=== PATIENT | female | born 1965 | race Caucasian/White ===

== ENCOUNTER 2022-10-11 14:38 | Inpatient (IN) | payer OTHER ==
[~2022-10-11] VITALS: Ht 162.6 cm; Wt 140.6 kg
[2022-10-11 14:49] VITALS: BP 124/79; PULSE 89; RESP 18; TEMP 98; O2SAT 99
--- NOTE | 2022-10-11 14:50 | NUR ---
PATIENT AMBULATED TO ER BED 04
[2022-10-11 16:04] LABS: BASOPHILS % (AUTO) 0.6 % (0.0-2.0); EOSINOPHILS # (AUTO) 0.2 K/uL (0-0.4); EOSINOPHILS % (AUTO) 2.1 % (0.0-4.0); HEMATOCRIT 38.3 % (36-48); HEMOGLOBIN 12.8 g/dL (12.0-16.0); LYMPHOCYTES # (AUTO) 2.4 K/uL (2.5-16.5); LYMPHOCYTES % (AUTO) 33.1 % (20.5-51.1); MEAN CORPUSCULAR HEMOGLOBIN 28 pg (27-31); MEAN CORPUSCULAR HGB CONC 33 g/dL (33-37); MEAN CORPUSCULAR VOLUME 82.9 fL (80-94); MONOCYTES # (AUTO) 0.7 K/uL (0.8-1.0); MONOCYTES % (AUTO) 9.5 % (1.7-9.3); NEUTROPHILS % (AUTO) 54.7 % (42.2-75.2); PLATELET COUNT (AUTO) 193 K/uL (140-450); RED BLOOD CELL COUNT(AUTO) 4.62 MIL/uL (4.20-5.40); RED CELL DISTRIBUTION WIDTH 15.1 % (11.6-13.7); WHITE BLOOD COUNT (AUTO) 7.3 K/uL (4.8-10.8)
[2022-10-11 16:15] VITALS: O2SAT 96
--- NOTE | 2022-10-11 16:20 | NUR ---
57 Y/O FEMALE, PT PRESENTS TO ED WITH C/O INTERMITTENT CP FOR 1.5 HOURS PRIOR TO ARRIVAL. PT STATES SHE HAS ALSO BEEN HAVING SOB WITH EXERTION AND LEFT EAR PRESSURE. 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 PATIENT POSITIONED FOR COMFORT; HOB ELEVATED; BEDRAILS UP X2; BED DOWN. ER MD MADE AWARE OF PT STATUS. CALL LIGHT WITHIN REACH. PMH: HTN, CHF, AFIB, DM2, STAGE 4 KIDNEY DISEASE, BELLS PALSY NKA
--- NOTE | 2022-10-11 16:24 | NUR ---
PATIENT PRESENTS TO ED WITH SIGNS OF CHEST PAIN. INTERMITTENT LFT SIDED NON RADIATINING CRAMPING, CHEST PAIN DURRATION OF A FEW SECONDS, PT HAS SOB WITH EXERTION.PT STATES SHES BEEN HAVING CHEST PAIN FOR 1.5 HOURS. DENIES N/V/D; SKIN IS PINK/WARM/DRY; AAOX4 WITH EVEN AND STEADY GAIT; LUNGS CLEAR BL; HR EVEN AND REGULAR; PT DENIES ANY FEVER, SOB, OR COUGH AT THIS TIME; PATIENT STATES PAIN OF 9/10 AT THIS TIME; VSS; PATIENT POSITIONED FOR COMFORT; HOB ELEVATED; BEDRAILS UP X2; BED DOWN.CALL LIGHT WITH IN REACH. ER MD MADE AWARE OF PT STATUS. PMHX CHF HTN DM AFIB ENSTAGE KIDNEY DISEASE BELLS PALSY ALLERGIES
[2022-10-11 16:25] LABS: ALBUMIN 3.6 g/dL (3.4-5.0); ANION GAP 13.9 (8-16); ASPARTATE AMINOTRANSFERASE 27 U/L (15-37); CARBON DIOXIDE 28.7 mmol/L (21-32); CHLORIDE 103 mmol/L (98-107); CREATININE 2.3 mg/dL (0.6-1.3); GFR ARICAN-AMERICAN 28 mL/min (>90); GLUCOSE 79 mg/dL (74-106); POTASSIUM 3.6 mmol/L (3.5-5.1); SODIUM SERUM 142 mmol/L (136-145); TOTAL BILIRUBIN 0.6 mg/dL (0.0-1.0); UREA NITROGEN, BLOOD 49 mg/dL (7-18)
[2022-10-11] MEDS ORDERED: ACETAMINOPHEN EXTRA STRENGTH 500 MG TAB PO ONE (16:50)
[2022-10-11] MEDS ORDERED: FUROSEMIDE 40 MG/4 ML VIAL IVP ONE (16:50)
--- NOTE | 2022-10-11 17:04 | NUR ---
PT HAS BEEN PLACED ON THE MONITOR. PT HAS BEEEN MEDICATED PER PROVIDERS ORDERS. PT HAS BEEN OFFERED JUICE. PTS BLOOD PRESSURE READING AT 129/66.
[2022-10-11] MEDS ORDERED: ASPIRIN 325 MG TAB PO ONE (17:55)
[2022-10-11] MEDS ORDERED: ASPIRIN 325 MG TAB ONE (19:12)
[2022-10-11] MEDS ORDERED: MORPHINE SULFATE 2 MG/ML SYR IVP PRN (21:30)
[2022-10-11] MEDS ORDERED: ONDANSETRON 4 MG/2 ML VIAL IVP PRN (21:30)
[2022-10-11] MEDS ORDERED: FURO-570 PO (22:17)
[2022-10-11] MEDS ORDERED: CARV25TA PO (22:17)
[2022-10-11] MEDS ORDERED: PANT40EC PO (22:17)
[2022-10-11] MEDS ORDERED: HYDR-5080 PO (22:17)
[2022-10-11] MEDS ORDERED: POTA10TA70 PO (22:17)
[2022-10-11] MEDS ORDERED: LOSA100T2 PO (22:17)
[2022-10-11] MEDS ORDERED: TRAZ-343 PO (22:17)
[2022-10-11] MEDS ORDERED: ATOR40TA PO (22:17)
[2022-10-11] MEDS ORDERED: CHOL500040 PO (22:17)
[2022-10-11] MEDS ORDERED: APIX5TAB PO (22:17)
[2022-10-11] MEDS ORDERED: ZAR2.5 PO (22:17)
--- NOTE | 2022-10-11 22:25 | NUR ---
Patient will be admitted to care of [facility]. Admited to TELE. Will go to room 122B. Belongings list completed. Report to LUI Olmstead.
[2022-10-11 22:45] VITALS: BP 118/70; PULSE 72; PULSE 80; RESP 16; TEMP 97.2; O2SAT 98
--- NOTE | 2022-10-11 22:45 | NUR ---
RECEIVED PT ADMISSION FROM ER, ARRIVED TO THE UNIT VIA [facility]. PT IS WITH A CHIEF COMPLAINT OF CHEST PAIN, DIAGNOSIS CHF. PT IS AWAKE, ALERT AND VERBALLY RESPONSIVE. PT HAS NO KNOWN ALLERGY AND IS A FULL CODE. PT HAS CARDIAC DIET. SHE IS ABLE TO AMBULATE FROM [facility] TO THE ASSIGNED BED WITH STEADY GAIT. PT IS CONTINENT. IV SITE IS ON RIGHT FOREARM 22G AND IS SALINE LOCK. SKIN INTACT AND WARM. PT IS COMING FROM HOME AND UNDER THE CARE OF DR. OWEN. PT DENIES OF PAIN AT THIS TIME.
--- NOTE | 2022-10-11 22:56 | NUR ---
Pt transferred to rm 122B in stable condition.
[2022-10-12] VITALS (10 sets, daily range): BP systolic 96–141; BP diastolic 52–73; PULSE 61–84; RESP 16–20; TEMP 96.9–97.9; O2SAT 97–99
[2022-10-12] MEDS: LORazepam 2 MG/ML VIAL IVP PRN (01:54)
--- NOTE | 2022-10-12 01:54 | NUR ---
PT COMPLAINTS OF ANXIETY AND UNABLE TO SLEEP, ATIVAN ADMINISTERED ORDERED.
--- NOTE | 2022-10-12 02:53 | NUR ---
PT IS SLEEPING, NO SOB OR DISTRESS.
[2022-10-12 05:13] LABS: BASOPHILS % (AUTO) 0.5 % (0.0-2.0); EOSINOPHILS # (AUTO) 0.2 K/uL (0-0.4); EOSINOPHILS % (AUTO) 2.7 % (0.0-4.0); HEMATOCRIT 38.2 % (36-48); HEMOGLOBIN 12.5 g/dL (12.0-16.0); LYMPHOCYTES # (AUTO) 2.8 K/uL (2.5-16.5); LYMPHOCYTES % (AUTO) 41.4 % (20.5-51.1); MEAN CORPUSCULAR HEMOGLOBIN 28 pg (27-31); MEAN CORPUSCULAR HGB CONC 33 g/dL (33-37); MONOCYTES # (AUTO) 0.7 K/uL (0.8-1.0); MONOCYTES % (AUTO) 10.6 % (1.7-9.3); NEUTROPHILS % (AUTO) 44.8 % (42.2-75.2); PLATELET COUNT (AUTO) 202 K/uL (140-450); RED BLOOD CELL COUNT(AUTO) 4.55 MIL/uL (4.20-5.40); RED CELL DISTRIBUTION WIDTH 15.1 % (11.6-13.7); WHITE BLOOD COUNT (AUTO) 6.7 K/uL (4.8-10.8)
[2022-10-12 05:27] LABS: ALBUMIN 3.2 g/dL (3.4-5.0); ANION GAP 12.1 (8-16); CARBON DIOXIDE 30.4 mmol/L (21-32); CREATININE 2.2 mg/dL (0.6-1.3); MAGNESIUM 1.9 mg/dL (1.8-2.4); POTASSIUM 3.5 mmol/L (3.5-5.1); TOTAL BILIRUBIN 0.5 mg/dL (0.0-1.0)
[2022-10-12] MEDS ORDERED: DEXTROSE 50% 50 ML SYR IVP PRN (06:50)
[2022-10-12] MEDS: BLOOD GLUCOSE MONITORING 1 DEV DEV FS SCH ×4 (06:53→20:04)
--- NOTE | 2022-10-12 06:53 | NUR ---
BLOOD SUGAR CHECKED = 103, NO SLIDING SCALE COVERAGE.
--- NOTE | 2022-10-12 07:22 | NUR ---
PT IS ON STABLE CONDITION. SAFETY MEASURES ARE IN PLACE. ENDORSED TO DAY SHIFT NURSE.
--- NOTE | 2022-10-12 07:45 | NUR ---
RECEIVED REPORT FROM KILN FIREMAN NURSE FOR CONTINUITY OF CARE. PT IS AWAKE, ALERT AND ORIENTED X4, AMBULATORY AND CONTINENT. CURRENTLY ON ROOM AIR WITH NO APPARENT SIGNS OF ACUTE DISTRESS NOTED. PATIENT STATES NO PAIN AT THIS TIME. IV SITE LOCATED AT RIGHT FOREARM 22 GAUGE, SALINE LOCK. OVERALL SKIN IS INTACT, NO OPEN WOUNDS. POC DISCUSSED, CALL LIGHT PLACED WITHIN REACH, SAFETY MEASURES IN PLACE. WILL MAKE FREQUENT ROUNDS.
--- NOTE | 2022-10-12 08:46 | NUR ---
PATIENT HAS BEEN SCREENED AND CATEGORIZED MODERATE NUTRITION RISK. PATIENT WILL BE SEEN WITHIN 3-5 DAYS OF ADMISSION. 10/14/22-10/16/[address]
[2022-10-12] MEDS: FUROSEMIDE 40 MG/4 ML VIAL IVP SCH ×2 (09:25→20:05)
[2022-10-12] MEDS: INSULIN LISPRO SLIDING SCALE 100 UNITS/ML VIAL SUBQ PRN ×2 (11:04→20:11)
--- NOTE | 2022-10-12 11:30 | NUR ---
PATIENT BLOOD GLUCOSE LEVEL OF OF 299. 6 UNITS OF HUMALOG WAS ADMINISTERED, PT TOLERATED WELL.
--- NOTE | 2022-10-12 13:44 | NUR ---
PT SPOKE WITH DIETARY ON DIETARY NEEDS.
--- NOTE | 2022-10-12 13:47 | NUR ---
DR HERNANDEZ CLEARED TO CONTINUE PATIENTS HOME MEDICATIONS. PT MADE AWARE.
--- NOTE | 2022-10-12 13:58 | NUR ---
Lard Renderer This mental health social worker conducted this assessment. Pt. was agreeable to this interview. She was sitting upright eating her lunch. Answers were appropriate and pt. was engaged. Pt. was AOx4.Pt. denied having any identifying problems. Pt. stated daughterKerry is her IHSS. Pt. also stated she receives weekly follow up calls from her [facility] worker, Jennie. Pt. stated she can perform most of her ADLs', fees self, dresses, bathes. Her daughterKerry is her SS worker and provides some assistance. Pt. stated she can drive self to apts. Pt stated she is aware of her health issues and said she is stage 4 for kidney failure.
[2022-10-12] MEDS: HYDROcodone/APAP 7.5/325 MG 1 TAB PO PRN (15:28)
--- NOTE | 2022-10-12 15:51 | NUR ---
ADMINISTERED NORCO FOR A PAIN LEVEL OF 6/10. PATIENT TOLERATED WELL, WILL REASSESS PAIN LEVEL IN ONE HOUR.
--- NOTE | 2022-10-12 16:22 | NUR ---
PATIENT BLOOD SUGAR LEVEL OF 149. NO COVERAGE NEEDED. NO OTHER SIGNS/SYMPTOMS OF DISTRESS NOTED. WILL CONTINUE MONITORING THE PATIENT.
--- NOTE | 2022-10-12 19:20 | NUR ---
RECEIVED PT IN BED AWAKE, ALERT AND ORIENTED X 4. DENIES PAIN AT THIS TIME. NO ACUTE RESPIRATORY DISTRESS. SKIN WARM AND DRY TO TOUCH. SAFETY PRECAUTIONS IN PLACE, CALL LIGHT IN REACH, INSTRUCTED TO CALL IF ASSISTANCE IS NEEDED, PT VERBALLY ACKNOWLEDGED.
[2022-10-12] MEDS: carvediloL 12.5 MG TAB PO SCH (20:05)
[2022-10-12] MEDS: traZODone 50 MG TAB PO SCH (20:06)
[2022-10-12] MEDS: APIXABAN 2.5 MG TAB PO SCH (20:10)
--- NOTE | 2022-10-12 20:10 | NUR ---
SCHEDULED MEDICATIONS GIVEN ORDERED. PT TOLERATED WELL.
--- NOTE | 2022-10-12 21:00 | NUR ---
PROVIDED HS SNACKS. ATE 100%.
[2022-10-12] MEDS: ACETAMINOPHEN 325 MG TAB PO PRN (21:40)
[2022-10-13] VITALS: BP_SYST 113; BP_SYST 115; BP_DIAS 69; BP_DIAS 72; PULSE 63; PULSE 66; PULSE 75; RESP 18; TEMP 96.7; TEMP 97.2; O2SAT 98
--- NOTE | 2022-10-13 | NUR ---
VITAL SIGNS TAKEN AND DOCUMENTED, VS WITHIN NORMAL LIMITS. DENIES PAIN AT THIS TIME. CALL LIGHT WITHIN REACH.
[2022-10-13] MEDS: LORazepam 2 MG/ML VIAL IVP PRN (00:53)
--- NOTE | 2022-10-13 02:20 | NUR ---
ROUNDING DONE. PT IS ASLEEP. BREATHING EVEN AND UNLABORED. CALL LIGHT WITHIN REACH.
[2022-10-13 04:00] VITALS: BP 118/67; PULSE 61; RESP 18; TEMP 96.7; O2SAT 99
[2022-10-13] MEDS: BLOOD GLUCOSE MONITORING 1 DEV DEV FS SCH ×4 (06:37→20:22)
--- NOTE | 2022-10-13 07:00 | NUR ---
RECEIVED PT FROM CITY ASSESSOR FOR CONTINUITY OF CARE. ALERT AND ORIENTED X 4. RESP. EVEN AND UNLABORED. IV SITE INTACT, ON SALINE LOCK. AMBULATORY. SKIN INTACT. NO C/O PAIN OR DISCOMFORT. CALL LIGHT KEPT WITHIN REACH. WILL CONTINUE TO MONITOR.
[2022-10-13 08:00] VITALS: BP 130/87; PULSE 63; PULSE 69; RESP 20; TEMP 97.6; O2SAT 99
[2022-10-13] MEDS ORDERED: FUROSEMIDE 40 MG TAB PO SCH (09:00)
[2022-10-13] MEDS: HYDROcodone/APAP 7.5/325 MG 1 TAB PO PRN ×2 (09:33→21:46)
[2022-10-13] MEDS: APIXABAN 2.5 MG TAB PO SCH ×2 (09:36→20:13)
[2022-10-13] MEDS: PANTOPRAZOLE 40 MG TABEC PO SCH (09:37)
[2022-10-13] MEDS: carvediloL 12.5 MG TAB PO SCH ×2 (09:38→20:14)
[2022-10-13] MEDS: ATORVASTATIN 20 MG TAB PO SCH (09:38)
[2022-10-13] MEDS: POTASSIUM CHLORIDE 10 MEQ TABER PO SCH (09:38)
[2022-10-13] MEDS: LOSARTAN 50 MG TAB PO SCH (09:38)
--- NOTE | 2022-10-13 09:38 | NUR ---
SCHEDULED MEDICATIONS GIVEN. TOLERATED WELL.
[2022-10-13] MEDS: FUROSEMIDE 40 MG/4 ML VIAL IVP SCH ×2 (10:03→20:17)
--- NOTE | 2022-10-13 11:49 | NUR ---
BS CHECKED 240. INSULIN WAS GIVEN PER SLIDING SCALE.
[2022-10-13] MEDS: INSULIN LISPRO SLIDING SCALE 100 UNITS/ML VIAL SUBQ PRN ×2 (11:50→20:23)
[2022-10-13] MEDS: ACETAMINOPHEN 325 MG TAB PO PRN (11:55)
[2022-10-13] MEDS: traZODone 50 MG TAB PO SCH ×2 (11:56→20:12)
[2022-10-13 12:00] VITALS: BP 120/70; PULSE 71; RESP 20; TEMP 97; O2SAT 98
[2022-10-13 16:00] VITALS: BP 114/77; PULSE 62; PULSE 79; RESP 20; TEMP 97.5; O2SAT 98
[2022-10-13 16:47] LABS: BASOPHILS % (AUTO) 0.6 % (0.0-2.0); EOSINOPHILS # (AUTO) 0.2 K/uL (0-0.4); EOSINOPHILS % (AUTO) 2.8 % (0.0-4.0); HEMATOCRIT 38.3 % (36-48); HEMOGLOBIN 12.7 g/dL (12.0-16.0); LYMPHOCYTES # (AUTO) 2.3 K/uL (2.5-16.5); LYMPHOCYTES % (AUTO) 35.4 % (20.5-51.1); MEAN CORPUSCULAR HEMOGLOBIN 28 pg (27-31); MEAN CORPUSCULAR HGB CONC 33 g/dL (33-37); MEAN CORPUSCULAR VOLUME 83.1 fL (80-94); MONOCYTES # (AUTO) 0.6 K/uL (0.8-1.0); MONOCYTES % (AUTO) 9.3 % (1.7-9.3); NEUTROPHILS # (AUTO) 3.3 K/uL (1.8-7.7); NEUTROPHILS % (AUTO) 51.9 % (42.2-75.2); PLATELET COUNT (AUTO) 186 K/uL (140-450); RED BLOOD CELL COUNT(AUTO) 4.61 MIL/uL (4.20-5.40); RED CELL DISTRIBUTION WIDTH 15.2 % (11.6-13.7); WHITE BLOOD COUNT (AUTO) 6.4 K/uL (4.8-10.8)
--- NOTE | 2022-10-13 16:58 | NUR ---
BS CHECKED 130. NO COVERAGE NEEDED.
[2022-10-13 17:03] LABS: ANION GAP 10.1 (8-16); CARBON DIOXIDE 32.9 mmol/L (21-32); CREATININE 2.1 mg/dL (0.6-1.3)
--- NOTE | 2022-10-13 19:20 | NUR ---
REPORT GIVEN TO K 9 POLICE OFFICER FOR CONTINUITY OF CARE. REMAINS STABLE.
--- NOTE | 2022-10-13 19:21 | NUR ---
RECEIVED PT FROM MORNING SHIFT NURSE. PT IS AOX4, AMBULATORY, ABLE TO VERBALIZE NEEDS AND ABLE TO FOLLOW COMMANDS. PT IS ON ROOM AIR AND ON CARDIAC DIET. PT IV ON RIGHT HAND GAUGE 22, SALINE LOCK. PT SKIN IS INTACT. NO COMPLAIN OF PAIN AND NO S/S OF RESPIRATORY DISTRESS NOTED. ALL SAFETY MEASURES IMPLEMENTED, BED IN LOW POSITION, BED WHEELS ON LOCK AND CALL LIGHT WITHIN REACH.
[2022-10-13 20:00] VITALS: BP 113/72; PULSE 63; PULSE 65; RESP 18; TEMP 97.2; O2SAT 98
--- NOTE | 2022-10-13 20:23 | NUR ---
ALL SCHEDULED AND PRESCRIBED MEDICATION WAS GIVEN TO PT PER MD ORDER. PT BLOOD GLUCOSE IS 191. HUMALOG INSULIN 2 UNITS WAS GIVEN TO PT. ALL SAFETY MEASURES IMPLEMENTED, BED IN LOW POSITION, BED WHEELS ON LOCK AND CALL LIGHT WITHIN REACH.
--- NOTE | 2022-10-13 21:46 | NUR ---
PT WAS GIVEN PRN NORCO DUE TO LEFT HIP AND RIGHT KNEE PAIN WITH PAIN SCALE OF 7/10. ALL SAFETY MEASURES IMPLEMENTED. BED IN LOW POSITION, BED WHEELS ON LOCK AND CALL LIGHT WITHIN REACH.
[2022-10-14] VITALS: BP 99/65; PULSE 74; RESP 18; TEMP 97.4; O2SAT 96
--- NOTE | 2022-10-14 | NUR ---
PT IS ON SLEEP. CHEST RISE AND FALL SYMMETRICALLY NOTED. RESPIRATION IS EVEN AND UNLABORED. ALL SAFETY MEASURES IMPLEMENTED. BED IN LOW POSITION, BED WHEELS ON LOCK AND CALL LIGHT WITHIN REACH.
--- NOTE | 2022-10-14 02:00 | NUR ---
CHECKED THE PT, STILL ON SLEEP. CHEST RISE AND FALL SYMMETRICALLY NOTED. RESPIRATION IS EVEN AND UNLABORED. ALL SAFETY MEASURES IMPLEMENTED. BED IN LOW POSITION, BED WHEELS ON LOCK AND CALL LIGHT WITHIN REACH.
[2022-10-14 04:00] VITALS: BP 94/67; PULSE 61; PULSE 65; RESP 19; TEMP 97.8; O2SAT 97
--- NOTE | 2022-10-14 04:00 | NUR ---
PT WAS GIVEN WARM BLANKET PER REQUEST. NO COMPLAIN OF PAIN AT THIS TIME. NO S/S OF RESPIRATORY DISTRESS NOTED. ALL SAFETY MEASURES IMPLEMENTED. BED IN LOW POSITION, BED WHEELS ON LOCK AND CALL LIGHT WITHIN REACH.
[2022-10-14] MEDS: BLOOD GLUCOSE MONITORING 1 DEV DEV FS SCH ×3 (06:32→17:08)
--- NOTE | 2022-10-14 06:32 | NUR ---
PT BLOOD GLUCOSE IS 146. NO INSULIN COVERAGE NEEDED.
--- NOTE | 2022-10-14 07:02 | NUR ---
RECEIVED PT FROM NIGHT NURSE CIRILO FOR CONTINUITY OF CARE. ALERT AND ORIENTED X 4. SKIN DRY AND WARM TO TOUCH. IV SITE PATENT AND INTACT, ON SALINE LOCK. AMBULATORY. NO C/O PAIN OR DISCOMFORT. CALL LIGHT KEPT WITHIN REACH. WILL CONTINUE TO MONITOR.
--- NOTE | 2022-10-14 07:04 | NUR ---
PT IS STABLE. ENDORSED PT TO MORNING SHIFT NURSE FOR CONTINUITY OF CARE.
[2022-10-14 08:00] VITALS: BP 117/61; PULSE 54; PULSE 64; PULSE 70; RESP 20; TEMP 97.6; O2SAT 99
[2022-10-14] MEDS: FUROSEMIDE 40 MG/4 ML VIAL IVP SCH (09:05)
--- NOTE | 2022-10-14 09:05 | NUR ---
LASIX IVP WAS GIVEN BY BRODIE POE. TOLERATED WELL.
[2022-10-14] MEDS: LOSARTAN 50 MG TAB PO SCH (09:41)
[2022-10-14] MEDS: POTASSIUM CHLORIDE 10 MEQ TABER PO SCH (09:41)
[2022-10-14] MEDS: PANTOPRAZOLE 40 MG TABEC PO SCH (09:41)
[2022-10-14] MEDS: traZODone 50 MG TAB PO SCH (09:41)
[2022-10-14] MEDS: ATORVASTATIN 20 MG TAB PO SCH (09:42)
[2022-10-14] MEDS: carvediloL 12.5 MG TAB PO SCH (09:42)
--- NOTE | 2022-10-14 09:42 | NUR ---
SCHEDULED MEDICATIONS GIVEN. TOLERATED WELL.
[2022-10-14] MEDS: APIXABAN 2.5 MG TAB PO SCH (09:44)
[2022-10-14] MEDS: INSULIN LISPRO SLIDING SCALE 100 UNITS/ML VIAL SUBQ PRN ×2 (11:45→17:10)
[2022-10-14 12:00] VITALS: BP 134/72; PULSE 70; PULSE 81; RESP 20; TEMP 96.3; O2SAT 98
[2022-10-14] MEDS: ACETAMINOPHEN 325 MG TAB PO PRN (13:31)
[2022-10-14 16:00] VITALS: BP 123/63; PULSE 64; PULSE 72; RESP 20; TEMP 98.1; O2SAT 99
--- NOTE | 2022-10-14 16:00 | NUR ---
SEEN BY DR. HERNANDEZ.
--- NOTE | 2022-10-14 17:08 | NUR ---
BS CHECKED 222. INSULIN WAS GIVEN.
--- NOTE | 2022-10-14 17:30 | NUR ---
PT LEFT. DISCHARGED TO HOME. TRANSPORTED VIA PRIVATE CAR. ALERT AND ORIENTED X 4. RESP. EVEN AND UNLABORED. AMBULATORY. SKIN INTACT. ID BAND AND IV REMOVED. DISCHARGED PAPERWORK, DISCUSS AND SIGNED BY PT. ALL PERSONAL BELONGINGS TAKEN. REMAINS STABLE.
--- NOTE | 2022-10-15 08:37 | NUR ---
WOUND CONSULT NOT DONE. PT. DISCHARGED.
--- NOTE | 2022-10-16 15:39 | NUR ---
CALLED DR STEPHEN SLOAN'S OFFICE LOCATED AT [address] [place] [address]. SPOKE WITH SHAI WHO WAS ABLE TO HELP ME SCHEDULE A HOSPITAL FOLLOW UP APPOINTMENT FOR 10/29/2022 AT 0930. CALLED PATIENT AND WAS ABLE TO SPEAK WITH PATIENT AND INFORM HER OF THE ABOVE INFORMATION.
== END 2022-10-14 17:30 | disposition home or self-care (01) | DRG 194 ==
LOC: MED 14:38 → MTU 21:31
PROVIDERS: ADMIT Hospitalist; ATTEND Hospitalist
DX: I13.0 Hypertensive heart and chronic kidney disease with heart failure and stage 1 through stage 4 chronic kidney disease, or unspecified chronic kidney disease (principal); E11.22 Type 2 diabetes mellitus with diabetic chronic kidney disease; N18.4 Chronic kidney disease, stage 4 (severe); Z68.43 Body mass index [BMI] 50.0-59.9, adult; Z79.01 Long term (current) use of anticoagulants; R07.89 Other chest pain; I50.33 Acute on chronic diastolic (congestive) heart failure; E66.01 Morbid (severe) obesity due to excess calories; I48.91 Unspecified atrial fibrillation; Z79.899 Other long term (current) drug therapy; I69.392 Facial weakness following cerebral infarction; Z87.891 Personal history of nicotine dependence
CPT/HCPCS: 36415; 71045; 80048; 80053; 82948; 83735; 83880; 84484; 85025; 87081; 93005; 96374; 99285; J1815; J1940; J2060; J2270; Q0092

== ENCOUNTER 2023-02-11 15:40 | Inpatient (IN) | payer OTHER ==
[~2023-02-11] VITALS: Ht 172.7 cm; Wt 129.3 kg
[~2023-02-11 15:40] MED LIST: APIX5TAB PO; ATOR40TA PO; CARV25TA PO; CHOL500040 PO; FURO-570 PO; HYDR-5080 PO; LOSA-272 PO; PANT40EC PO; POTA10TA70 PO; TRAZ-343 PO; ZAR2.5 PO
[2023-02-11 15:44] VITALS: BP 147/75; PULSE 117; RESP 17; TEMP 97.1; O2SAT 98
[2023-02-11] MEDS ORDERED: KETOROLAC 60 MG/2 ML VIAL IM ONE (18:05)
[2023-02-11] MEDS ORDERED: MORPHINE SULFATE 4 MG/ML SYR IVP ONE (18:45)
[2023-02-11 19:06] LABS: BASOPHILS % (AUTO) 0.3 % (0.0-2.0); EOSINOPHILS # (AUTO) 0.1 K/uL (0-0.4); EOSINOPHILS % (AUTO) 0.6 % (0.0-4.0); HEMATOCRIT 36.6 % (36-48); HEMOGLOBIN 12.2 g/dL (12.0-16.0); LYMPHOCYTES # (AUTO) 2.3 K/uL (2.5-16.5); MEAN CORPUSCULAR HEMOGLOBIN 28 pg (27-31); MEAN CORPUSCULAR HGB CONC 33 g/dL (33-37); MEAN CORPUSCULAR VOLUME 83.7 fL (80-94); MONOCYTES # (AUTO) 1.1 K/uL (0.8-1.0); MONOCYTES % (AUTO) 11.1 % (1.7-9.3); NEUTROPHILS # (AUTO) 6.1 K/uL (1.8-7.7); PLATELET COUNT (AUTO) 182 K/uL (140-450); RED BLOOD CELL COUNT(AUTO) 4.37 MIL/uL (4.20-5.40); RED CELL DISTRIBUTION WIDTH 15.6 % (11.6-13.7); WHITE BLOOD COUNT (AUTO) 9.6 K/uL (4.8-10.8)
[2023-02-11 19:25] LABS: ALBUMIN 3.2 g/dL (3.4-5.0); ANION GAP 9.8 (8-16); CALCIUM 8.5 mg/dL (8.5-10.1); CREATININE 2.5 mg/dL (0.6-1.3); POTASSIUM 3.8 mmol/L (3.5-5.1); TOTAL BILIRUBIN 1.4 mg/dL (0.0-1.0); TOTAL PROTEIN, SERUM 7.3 g/dL (6.4-8.2)
[2023-02-11 19:49] VITALS: O2SAT 99
[2023-02-11] MEDS ORDERED: HYDROcodone/APAP 5/325 MG 1 TAB TAB PO PRN (20:50)
[2023-02-11] MEDS ORDERED: KCL 20 MEQ IN 100 mL PREMIX 200 ML IV PRN (20:50)
[2023-02-11] MEDS ORDERED: MAGNESIUM OXIDE 400 MG TAB PO PRN (20:50)
[2023-02-11] MEDS ORDERED: MAG SULF 2000 MG/WATER PREMIX 50 ML IV PRN (20:50)
[2023-02-11] MEDS ORDERED: ONDANSETRON 4 MG/2 ML VIAL IVP PRN (20:50)
[2023-02-11] MEDS ORDERED: POTASSIUM CHLORIDE 10 MEQ TABER PO PRN (20:50)
[2023-02-11] MEDS ORDERED: ACETAMINOPHEN 325 MG TAB PO PRN (20:50)
[2023-02-11] MEDS ORDERED: DEXTROSE 50% 50 ML SYR IVP PRN (20:55)
[2023-02-11] MEDS: BLOOD GLUCOSE MONITORING 1 DEV DEV FS SCH (22:28)
[2023-02-11 22:55] VITALS: BP 100/55; PULSE 97; RESP 18; TEMP 96.7; O2SAT 98
[2023-02-12 04:00] VITALS: BP 96/60; PULSE 87; RESP 18; TEMP 97.5; O2SAT 94
[2023-02-12 05:50] LABS: BASOPHILS # (AUTO) 0.1 K/uL (0.00-0.22); BASOPHILS % (AUTO) 0.9 % (0.0-2.0); EOSINOPHILS # (AUTO) 0.1 K/uL (0-0.4); EOSINOPHILS % (AUTO) 1.3 % (0.0-4.0); HEMATOCRIT 34.7 % (36-48); HEMOGLOBIN 11.7 g/dL (12.0-16.0); LYMPHOCYTES # (AUTO) 2.3 K/uL (2.5-16.5); LYMPHOCYTES % (AUTO) 28.3 % (20.5-51.1); MEAN CORPUSCULAR HEMOGLOBIN 28 pg (27-31); MEAN CORPUSCULAR HGB CONC 34 g/dL (33-37); MEAN CORPUSCULAR VOLUME 83.5 fL (80-94); MONOCYTES % (AUTO) 11.9 % (1.7-9.3); NEUTROPHILS # (AUTO) 4.7 K/uL (1.8-7.7); NEUTROPHILS % (AUTO) 57.6 % (42.2-75.2); PLATELET COUNT (AUTO) 168 K/uL (140-450); RED BLOOD CELL COUNT(AUTO) 4.16 MIL/uL (4.20-5.40); RED CELL DISTRIBUTION WIDTH 15.4 % (11.6-13.7); WHITE BLOOD COUNT (AUTO) 8.2 K/uL (4.8-10.8)
[2023-02-12 06:25] LABS: ALBUMIN 2.9 g/dL (3.4-5.0); ANION GAP 13.1 (8-16); CALCIUM 8.5 mg/dL (8.5-10.1); CARBON DIOXIDE 30.3 mmol/L (21-32); CREATININE 2.9 mg/dL (0.6-1.3); MAGNESIUM 1.8 mg/dL (1.8-2.4); POTASSIUM 3.4 mmol/L (3.5-5.1); TOTAL BILIRUBIN 1.6 mg/dL (0.0-1.0)
[2023-02-12] MEDS: BLOOD GLUCOSE MONITORING 1 DEV DEV FS SCH ×4 (06:54→20:59)
[2023-02-12 08:00] VITALS: BP 111/84; PULSE 98; RESP 18; TEMP 97.1; O2SAT 98
[2023-02-12] MEDS: MORPHINE SULFATE 2 MG/ML SYR IVP PRN ×2 (08:39→19:06)
[2023-02-12 12:22] LABS: URIC ACID 12.5 mg/dL (2.6-7.2)
[2023-02-12] MEDS: INSULIN LISPRO SLIDING SCALE 100 UNITS/ML VIAL SUBQ PRN ×3 (12:34→20:56)
[2023-02-12] MEDS: INSULIN LANTUS 100 UNITS/ML 10 ML VIAL SUBQ SCH (12:35)
[2023-02-12] MEDS: COLCHICINE 0.6 MG TAB PO SCH ×2 (12:49→20:58)
[2023-02-12] MEDS: predniSONE 20 MG TAB PO SCH (12:49)
[2023-02-12 16:00] VITALS: BP 109/67; PULSE 81; RESP 18; TEMP 98; O2SAT 99
[2023-02-12 16:09] LABS: URINE TOTAL PROTEIN 58.7 mg/dL (0-12)
[2023-02-12 16:10] LABS: URINE TPRO CREAT RATIO 0.4 (0-0.20)
[2023-02-12] MEDS: INSULIN LISPRO 100 UNITS/ML VIAL SUBQ SCH (17:37)
[2023-02-12 20:00] VITALS: PULSE 115; RESP 17; O2SAT 100
[2023-02-12] MEDS ORDERED: INSULIN LISPRO 100 UNITS/ML VIAL SUBQ ONE (22:10)
[2023-02-12] MEDS: ALBUMIN HUMAN 25% 50 ML IV SCH (23:14)
[2023-02-12] MEDS: traZODone 50 MG TAB PO SCH (23:14)
[2023-02-13] VITALS: BP 127/83; PULSE 115; RESP 17; TEMP 97.7; O2SAT 100
[2023-02-13] MEDS: ALBUMIN HUMAN 25% 50 ML IV SCH ×2 (05:42→13:46)
[2023-02-13 05:44] LABS: BASOPHILS % (AUTO) 0.2 % (0.0-2.0); EOSINOPHILS % (AUTO) 0.1 % (0.0-4.0); HEMATOCRIT 33.2 % (36-48); HEMOGLOBIN 11.1 g/dL (12.0-16.0); LYMPHOCYTES # (AUTO) 1.5 K/uL (2.5-16.5); LYMPHOCYTES % (AUTO) 16.6 % (20.5-51.1); MEAN CORPUSCULAR HEMOGLOBIN 28 pg (27-31); MEAN CORPUSCULAR HGB CONC 33 g/dL (33-37); MONOCYTES # (AUTO) 0.7 K/uL (0.8-1.0); MONOCYTES % (AUTO) 7.6 % (1.7-9.3); NEUTROPHILS # (AUTO) 6.8 K/uL (1.8-7.7); NEUTROPHILS % (AUTO) 75.5 % (42.2-75.2); PLATELET COUNT (AUTO) 183 K/uL (140-450); RED BLOOD CELL COUNT(AUTO) 4.01 MIL/uL (4.20-5.40); RED CELL DISTRIBUTION WIDTH 15.2 % (11.6-13.7)
[2023-02-13 05:58] LABS: ALBUMIN 2.9 g/dL (3.4-5.0); ANION GAP 11.2 (8-16); CALCIUM 8.3 mg/dL (8.5-10.1); CARBON DIOXIDE 28.9 mmol/L (21-32); CREATININE 2.4 mg/dL (0.6-1.3); MAGNESIUM 1.7 mg/dL (1.8-2.4); POTASSIUM 4.1 mmol/L (3.5-5.1); TOTAL PROTEIN, SERUM 7.1 g/dL (6.4-8.2)
[2023-02-13] MEDS: BLOOD GLUCOSE MONITORING 1 DEV DEV FS SCH ×4 (06:57→20:49)
[2023-02-13] MEDS: INSULIN LISPRO 100 UNITS/ML VIAL SUBQ SCH ×3 (06:58→17:22)
[2023-02-13] MEDS: INSULIN LISPRO SLIDING SCALE 100 UNITS/ML VIAL SUBQ PRN ×4 (07:03→20:51)
[2023-02-13 08:00] VITALS: BP 107/57; PULSE 81; RESP 18; TEMP 98.1; O2SAT 96
[2023-02-13] MEDS: traZODone 50 MG TAB PO SCH ×2 (08:36→20:51)
[2023-02-13] MEDS: predniSONE 20 MG TAB PO SCH (08:37)
[2023-02-13] MEDS: COLCHICINE 0.6 MG TAB PO SCH ×2 (08:38→20:51)
[2023-02-13] MEDS: INSULIN LANTUS 100 UNITS/ML 10 ML VIAL SUBQ SCH (08:47)
[2023-02-13] MEDS ORDERED: POLYETHYLENE GLYCOL 17 GM/PKT PO PRN (09:25)
[2023-02-13 16:00] VITALS: BP 127/49; PULSE 83; RESP 18; TEMP 97.1; O2SAT 100
[2023-02-13] MEDS: MORPHINE SULFATE 2 MG/ML SYR IVP PRN (19:19)
[2023-02-13 19:43] VITALS: BP 133/63; PULSE 87; RESP 18; TEMP 97.3; O2SAT 97
[2023-02-13 19:44] VITALS: PULSE 87; RESP 18; O2SAT 97
[2023-02-13] MEDS ORDERED: ZOLPIDEM 5 MG TAB PO SCH (21:00)
[2023-02-14 04:00] VITALS: BP 115/62; PULSE 83; RESP 18; TEMP 97.9; O2SAT 96
[2023-02-14 05:47] LABS: BASOPHILS # (AUTO) 0.1 K/uL (0.00-0.22); EOSINOPHILS % (AUTO) 0.2 % (0.0-4.0); HEMATOCRIT 34.2 % (36-48); HEMOGLOBIN 11.4 g/dL (12.0-16.0); LYMPHOCYTES # (AUTO) 2.1 K/uL (2.5-16.5); LYMPHOCYTES % (AUTO) 23.3 % (20.5-51.1); MEAN CORPUSCULAR HEMOGLOBIN 28 pg (27-31); MEAN CORPUSCULAR HGB CONC 33 g/dL (33-37); MEAN CORPUSCULAR VOLUME 83.5 fL (80-94); MONOCYTES # (AUTO) 0.7 K/uL (0.8-1.0); MONOCYTES % (AUTO) 7.8 % (1.7-9.3); NEUTROPHILS % (AUTO) 67.7 % (42.2-75.2); PLATELET COUNT (AUTO) 189 K/uL (140-450); RED BLOOD CELL COUNT(AUTO) 4.09 MIL/uL (4.20-5.40); RED CELL DISTRIBUTION WIDTH 15.3 % (11.6-13.7); WHITE BLOOD COUNT (AUTO) 8.9 K/uL (4.8-10.8)
[2023-02-14 06:18] LABS: ANION GAP 12.9 (8-16); CALCIUM 8.8 mg/dL (8.5-10.1); CARBON DIOXIDE 28.1 mmol/L (21-32); CREATININE 2.1 mg/dL (0.6-1.3); MAGNESIUM 2.1 mg/dL (1.8-2.4); TOTAL BILIRUBIN 0.5 mg/dL (0.0-1.0)
[2023-02-14] MEDS: BLOOD GLUCOSE MONITORING 1 DEV DEV FS SCH ×2 (06:30→11:48)
[2023-02-14] MEDS: INSULIN LISPRO 100 UNITS/ML VIAL SUBQ SCH ×2 (06:31→11:46)
[2023-02-14] MEDS: INSULIN LISPRO SLIDING SCALE 100 UNITS/ML VIAL SUBQ PRN ×2 (06:32→11:47)
[2023-02-14 08:00] VITALS: BP 129/87; PULSE 71; RESP 20; TEMP 97; O2SAT 98
[2023-02-14] MEDS: traZODone 50 MG TAB PO SCH (08:53)
[2023-02-14] MEDS: COLCHICINE 0.6 MG TAB PO SCH (08:53)
[2023-02-14] MEDS: MORPHINE SULFATE 2 MG/ML SYR IVP PRN (08:55)
[2023-02-14] MEDS: INSULIN LANTUS 100 UNITS/ML 10 ML VIAL SUBQ SCH (09:00)
[2023-02-14] MEDS ORDERED: HUM7525 SUBQ (09:38)
[2023-02-14] MEDS ORDERED: LANTUS SUBQ (09:40)
[2023-02-14] MEDS ORDERED: ALLO100T21 PO (11:10)
[2023-02-14] MEDS ORDERED: COLC0.6C PO (11:10)
[2023-02-14 14:06] VITALS: BP 129/87; PULSE 71; RESP 20; TEMP 97
== END 2023-02-14 16:10 | disposition home or self-care (01) | DRG 351 ==
LOC: MED 15:40 → MTU 20:49
PROVIDERS: ADMIT Hospitalist; ATTEND Hospitalist
DX: M10.072 Idiopathic gout, left ankle and foot (principal); N17.0 Acute kidney failure with tubular necrosis; E66.01 Morbid (severe) obesity due to excess calories; I12.9 Hypertensive chronic kidney disease with stage 1 through stage 4 chronic kidney disease, or unspecified chronic kidney disease; E11.22 Type 2 diabetes mellitus with diabetic chronic kidney disease; N18.4 Chronic kidney disease, stage 4 (severe); Z68.41 Body mass index [BMI] 40.0-44.9, adult; Z79.01 Long term (current) use of anticoagulants; Z79.899 Other long term (current) drug therapy; Z79.2 Long term (current) use of antibiotics; I48.20 Chronic atrial fibrillation, unspecified; E78.5 Hyperlipidemia, unspecified
CPT/HCPCS: 36415; 71045; 73630; 80053; 82570; 82948; 83735; 83880; 84484; 84550; 85025; 93005; 96372; 96374; 97163-GP; 97530; 99285; J1644; J1815; J1885; J2270; J7512; P9046; Q0092